=== PATIENT | male | born 1990 | race Caucasian/White ===

== ENCOUNTER 2016-09-14 16:14 | Emergency (ER) | payer OTHER ==
[2016-09-14 16:21] VITALS: O2SAT 95
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
--- NOTE | 2016-09-14 17:35 | DX ---
Right Hand, Three Views History: Pain post trauma. Crush injury to fifth metacarpal and finger. Comparison: 07/16/2010 Findings: There is a soft tissue laceration along the palmar aspect of the fifth finger at the level of the DIP joint where there is some radiopaque foreign material associated with the laceration that extends for deep to the level of the palmar aspect of the DIP joint. There is a localized comminuted fracture of the proximal palmar corner of the distal phalanx (compared to the prior exam). There are also 2 small cortical fragments or radiopaque foreign bodies adjacent to the palmar aspect of the PIP joint. No malalignment or dislocation is identified. Impression: 1. Possible open fracture involving the proximal palmar base of the distal phalanx of the fifth finger. 2. Suspect 2 small avulsion fragments adjacent to the palmar aspect of the fifth PIP joint.
[2016-09-14] MEDS ORDERED: TDAP ADULT 0.5 ML VIAL (BOOSTRIX) IM ONE (18:28)
[2016-09-14 18:40] VITALS: BP 115/73; PULSE 64; RESP 16; TEMP 98.1
== END 2016-09-14 18:40 | disposition home or self-care (01) ==
PROC: 0HQFXZZ Repair Right Hand Skin, External Approach (ICD-10-PCS; principal; 2016-09-14)
DX: S62.636A Displaced fracture of distal phalanx of right little finger, initial encounter for closed fracture (principal); S61.216A Laceration without foreign body of right little finger without damage to nail, initial encounter; Z23 Encounter for immunization; V00.141A Fall from scooter (nonmotorized), initial encounter
CPT/HCPCS: 96365; J0690